=== PATIENT | female | born 1965 | race Native Hawaiian/Other Pacific Islander ===

== ENCOUNTER 2016-10-28 08:55 | Day surgery (SDC) | payer OTHER ==
[2016-10-27 08:42] VITALS: BMI 23.6
[2016-10-28] MEDS ORDERED: Midazolam 2 MG/2 ML VIAL ONE (13:08)
[2016-10-28] MEDS ORDERED: Propofol 10 mg/ml Inj (20 ML) ONE (13:09)
[2016-10-28] MEDS ORDERED: Lactated Ringer's 1,000 ML IV ONE ×2 (13:15→15:30)
[2016-10-28] MEDS ORDERED: HYDROmorphone 0.5 mg/0.5 ml ISec IVP PRN (14:09)
[2016-10-28 16:45] VITALS: RESP 16
[2016-10-28 17:20] VITALS: BP 129/75; PULSE 75; TEMP 98.1; O2SAT 98
--- NOTE | 2016-10-28 21:54 | PCM.SURG1 ---
Surgeon's Initial Post Op Note - Surgeon's Notes Surgeon: Gali Nielson MD Scoreboard Operator: none Type of Anesthesia: General LMA Pre-Operative Diagnosis: Fibroids, pelvic pain Operative Findings: 10 week size uterus, bilateral ostia visualized, unable to sound uteurs initially due to type myoma located in uterus/ cervical cancer adn visulized immediately with hysteroscopy. Myosure represenative present for entire case. Post-Operative Diagnosis: Submucosal myoma, pelvic pain Operation Performed: Hystersscopic myomecetomy, Dilation and Currettage Specimen/Specimens Removed: Endocervical currettings, endometrial currettings, submucosal myoma Estimated Blood Loss: EBL {In ML}: 20 Blood Products Given: N/A Drains Used: No Drains Post-Op Condition: Good Date of Surgery/Procedure: 10/28/16 Time of Surgery/Procedure: 13:00
--- NOTE | 2016-10-29 06:00 | OP ---
PROCEDURE DATE: 10/28/2016 SURGEON: Dr. Gali Nielson. HOT PLATE [employer] PRESS LABORER: None. TYPE OF ANESTHESIA: General LMA. PREOPERATIVE DIAGNOSES: Fibroids, pelvic pain. OPERATIVE FINDINGS: Ten week size uterus, bilateral ostia visualized, unable to sound uterus initial ly due to aborting myoma located in uterus/cervical canal and immediately visualized with hyste roscopy, MyoSure factory representative present for entire case. POSTOPERATIVE DIAGNOSIS: Submucosal myoma/ pelvic pain. OPERATION PERFORMED: Hysteroscopic myomectomy, dilation and curettage. SPECIMEN REMOVED: Endocervical curettings, endometrial curettings, submucosal myoma. Gali Nielson MD cc: [id number] TT: 10/29/2016 05:59:41 tn
--- NOTE | 2016-10-29 08:14 | OP ---
PROCEDURE DATE: 10/28/2016 DATE OF SURGERY: 10/28/2016 SURGEON: Dr. Gali Nielson. UPHOLSTERY AUTO TRIMMER: None. TYPE OF ANESTHESIA: General LMA. PREOPERATIVE DIAGNOSIS: Fibroids. Pelvic pain. OPERATIVE FINDINGS: A 12-week size uterus, bilateral ostia visualized. Unable to sound uterus init ially due to aborting type myoma located within uterus/cervix but immediately visualized with hystero scopy ____ for entire case, good removal of submucosal myoma. POSTOPERATIVE DIAGNOSIS: Submucosal myoma. Pelvic pain. OPERATION PERFORMED: Hysteroscopic myomectomy, dilation and curettage. SPECIMEN REMOVED: Endocervical curettings, endometrial curettings, submucosal myoma. ESTIMATED BLOOD LOSS: 20 mL. BLOOD PRODUCTS: None. COMPLICATIONS: None. DESCRIPTION OF PROCEDURE: The patient was brought to the operating room where she given anesthesia. Once we had adequate anesthesia, she was placed on the operating table in dorsal supine position wit h legs supported using stirrups. The patient was then prepped and draped in the usual normal sterile fashion. Timeout confirmed correct patient, correct procedure. A bimanual exam was performed with above-mentioned findings and a red rubber catheter inserted into t he urethra to drain the bladder which was drained of 30 mL of clear yellow urine. Following this, a English retractor was placed in the ____ vagina. The cervix was adequately visualized and a single toot h tenaculum was placed on the anterior lip of the cervix. The uterus was then attempted to be sounded, but was unsuccessful due to a mass noted within the cavi ty. A smaller dilator was then carefully inserted. However, there was difficulty sounding, so the c ervix was just sequentially dilated with the Zan dilator to allow for introduction of the MyoSure hy steroscope under direct visualization using normal saline as the distending media. Upon immediate visualization noted within the cervical canal in close proximity to the uterus, there was an enlarged myoma noted to be approximately 3 cm noted. The MyoSure device was then activated an d the hysteroscope carefully dissected and removed the myoma. Following this, we were able to enter to the fundus of the uterine cavity and there was good visualiz ation noted by bilateral ostia. A gentle curettage was done 360 degrees until a gritty texture was n oted. All instruments were removed including the single tooth tenaculum and there was good hemostasis at th e tenaculum puncture sites. All instruments were removed. At the end of the procedure, all needle, sponge and instrument counts were noted to be correct x 2. The patient tolerated the procedure well and was transferred to recovery in stable condition. Gali Nielson MD cc: [id number] TT: 10/29/2016 06:07:07 ct 10/29/2016 07:14:19
== END 2016-10-28 17:27 | disposition home or self-care (01) ==
LOC: C.SDS 08:55
PROVIDERS: ATTEND Obstetrics & Gynecology
DX: D25.0 Submucous leiomyoma of uterus (principal)

== ENCOUNTER 2018-05-20 09:49 | Emergency (ER) | payer OTHER ==
[2018-05-20 09:49] VITALS: BMI 23.6
[2018-05-20 10:06] VITALS: RESP 18; O2SAT 98
[2018-05-20 10:34] LABS: URINE BILIRUBIN NEGATIVE (NEGATIVE); URINE BLOOD NEGATIVE (NEGATIVE); URINE CLARITY Clear (Clear); URINE COLOR Colorless (YELLOW); URINE GLUCOSE (UA) NORMAL (Normal); URINE LEUKOCYTE ESTERASE NEG Leu/uL (Negative); URINE PROTEIN NEGATIVE (NEGATIVE); URINE UROBILINOGEN NORMAL mg/dL (0.2-1.0)
[2018-05-20 10:37] LABS: HCG,QUALITATIVE URINE NEGATIVE (NEGATIVE)
--- NOTE | 2018-05-20 11:37 | C.PDOC ---
History Of Present Illness 53-year-old female, presents to the emergency department complaining of nasal congestion, runny nose, post-nasal drip, and cough that started six days ago. Patient went to urgent care and was given Zithromax, which she is taking, and also "left over" Amoxicillin from her refrigerator. Patient notes she also developed vaginal burning and dysuria. States she is unable to sleep at night because she is uncomfortable, prompting visit. No other complaints at this time. Chief Complaint (Nursing): Cough, Cold, Congestion History Per: Patient History/Exam Limitations: no limitations Past Medical History Reviewed: Historical Data, Nursing Documentation, Vital Signs Vital Signs: Last Vital Signs Temp 98.6 F 05/20/18 10:02 Pulse 86 05/20/18 10:02 Resp 18 05/20/18 10:02 BP 139/90 05/20/18 10:02 Pulse Ox 98 05/20/18 10:02 - Medical History PMH: HTN, Hypercholesterolemia, Migraine Family History: States: No Known Family Hx - Social History Hx Alcohol Use: No Hx Substance Use: No - Immunization History Hx Tetanus Toxoid Vaccination: No Hx Influenza Vaccination: No Hx Pneumococcal Vaccination: No Review Of Systems Constitutional: Negative for: Fever ENT: Positive for: Throat Pain Respiratory: Positive for: Cough. Negative for: Shortness of Breath Gastrointestinal: Negative for: Vomiting Genitourinary: Positive for: Dysuria, Vaginal Discharge Skin: Negative for: Rash Physical Exam - Physical Exam Appears: Non-toxic, No Acute Distress Skin: Warm, Dry, No Rash Head: Atraumatic, Normacephalic Eye(s): bilateral: Normal Inspection, PERRL, EOMI Nose: Discharge Oral Mucosa: Moist Lips: Normal Appearing Throat: No Erythema, No Exudate, No Drooling, No Mass Neck: Normal ROM Cardiovascular: Rhythm Regular, No Murmur Respiratory: Normal Breath Sounds, No Accessory Muscle Use Pelvic: Normal Speculum Exam, Vaginal Discharge (white.), Other (No cervicitis, +erythema) Extremity: Normal ROM, No Deformity Neurological/Psych: Oriented x3, Normal Speech ED Course And Treatment O2 Sat by Pulse Oximetry: 98 Pulse Ox Interpretation: Normal (RA) - Other Rad CXR X-Ray: Viewed By Me, Read By Radiologist Interpretation: Accession No. : [id number]. Patient Name / ID : AGUSTIN Batista / [id number]. Exam Date : 05/20/2018 10:47:50 ( Approved ). Study Comment : Sex / Age : F / 53Y. Creator : Stanton Berg MD. Dictator : Stanton Berg MD. Head Of Biology : Food Service Order Clerk : Stanton Berg MD. Appr over2 : Report Date : 05/20/2018 13:45:04. My Comment : . Date of service: 05/20/2018. HISTORY: cough/congestion. COMPARISON: No prior. TECHNIQUE: Chest PA and lateral. FINDINGS: LUNGS: Minor bibasilar atelectasis and/or scarring changes left greater than right. PLEURA: No significant pleural effusion identified. No pneumothorax apparent. CARDIOVASCULAR: Heart appears mildly enlarged. OSSEOUS STRUCTURES: No significant abnormalities. VISUALIZED UPPER ABDOMEN: Normal. OTHER FINDINGS: None. IMPRESSION: Minor bibasilar atelectasis and/or scarring changes left greater than right Progress Note: Patient is stable to be d/c home with PMD follow up. Disposition - Disposition Disposition: HOME/ ROUTINE Disposition Time: 11:33 Condition: STABLE Additional Instructions: Follow up with PMD within 1-2 days. Return to ED if feel worse. Prescriptions: Metronidazole [Metrogel-Vaginal] 1 ea VG QPM 7 Days #7 gel Albuterol Sulfate [Proair Hfa] 1 puff IH Q6 PRN #1 inh PRN Reason: Cough Promethazine HCl/Codeine [Prometh-Codein 6.25-10 mg/5 ml] 5 ml PO .Q4-6H #150 ml Phenazopyridine [Pyridium] 200 mg PO TID #15 tab Instructions: Vaginitis, Upper Respiratory Infection (ED) Forms: [facility] (Georgian), Work Excuse - Clinical Impression Clinical Impression: Upper respiratory infection - Scribe Statement The provider has reviewed the documentation as recorded by the Scribe (Haley Santana) All medical record entries made by the Scribe were at my direction and personally dictated by me. I have reviewed the chart and agree that the record accurately reflects my personal performance of the history, physical exam, medical decision making, and the department course for this patient. I have also personally directed, reviewed, and agree with the discharge instructions and disposition.
[2018-05-20 11:53] VITALS: BP 126/80; PULSE 82; TEMP 98.8
--- NOTE | 2018-05-20 13:46 | RAD ---
Date of service: 05/20/2018 HISTORY: cough/congestion COMPARISON: No prior. TECHNIQUE: Chest PA and lateral FINDINGS: LUNGS: Minor bibasilar atelectasis and/or scarring changes left greater than right PLEURA: No significant pleural effusion identified. No pneumothorax apparent. CARDIOVASCULAR: Heart appears mildly enlarged. OSSEOUS STRUCTURES: No significant abnormalities. VISUALIZED UPPER ABDOMEN: Normal. OTHER FINDINGS: None. IMPRESSION: Minor bibasilar atelectasis and/or scarring changes left greater than right
== END 2018-05-20 11:56 | disposition home or self-care (01) ==
LOC: C.ER 09:49
DX: J06.9 Acute upper respiratory infection, unspecified (principal)